=== PATIENT | female | born 1980 | race Two or more races ===

== ENCOUNTER 2017-02-14 08:08 | Emergency (ER) | payer MEDICAID ==
[~2017-02-14] VITALS: Ht 162.6 cm; Wt 93.0 kg
[2017-02-14 08:48] VITALS: BP 138/85
[2017-02-14] MEDS ORDERED: KETOROLAC TROMETH 60MG/2ML VIAL IM ONE (09:00)
[2017-02-14] MEDS ORDERED: TETANUS-DIPTH-ACEL PERTUSSIS 0.5ML SYRG IM ONE (09:00)
[2017-02-14] MEDS ORDERED: LIDOCAINE 1% HCL (LOCAL ANESTH.) INJ 20ML MDV IN ONE (09:15)
[2017-02-14] MEDS ORDERED: cefTRIAXone W LIDOCAINE 1 GM IM IM ONE (09:30)
[2017-02-14] MEDS ORDERED: NEOMYCIN-BACITRACIN-POLYM UNITDOSE PKG TOP OINT TOP ONE ×2 (09:45→10:00)
[2017-02-14] MEDS ORDERED: cefTRIAXone SOD 1,000 MG VL ONE (09:54)
[2017-02-14] MEDS ORDERED: NEOMYCIN-BACITRACIN-POLYM 15GM TOP OINT TOP SCH (10:00)
== END 2017-02-14 10:38 | disposition home or self-care (01) ==
LOC: ER 08:08
DX: S41.112A Laceration without foreign body of left upper arm, initial encounter (principal); W01.0XXA Fall on same level from slipping, tripping and stumbling without subsequent striking against object, initial encounter; Y93.E9 Activity, other interior property and clothing maintenance; Y92.098 Other place in other non-institutional residence as the place of occurrence of the external cause; Y99.8 Other external cause status; Z23 Encounter for immunization
CPT/HCPCS: 12036; 90471; 90715; 96372; 99284; J0696; J1885; J2001

== ENCOUNTER 2017-02-28 15:12 | Emergency (ER) | payer MEDICAID ==
[~2017-02-28] VITALS: Ht 162.6 cm; Wt 92.5 kg
[2017-02-28 15:46] VITALS: BP 116/73
== END 2017-02-28 16:00 | disposition home or self-care (01) ==
LOC: ER 15:14
DX: S41.112D Laceration without foreign body of left upper arm, subsequent encounter (principal); X58.XXXD Exposure to other specified factors, subsequent encounter